=== PATIENT | male | born 1970 | race Caucasian/White ===

== ENCOUNTER 2023-01-25 16:24 | Emergency (ER) | payer MEDICAID, OTHER ==
[~2023-01-25] VITALS: Ht 180.3 cm; Wt 109.0 kg
[2023-01-25 16:31] VITALS: TEMP 98.3; O2SAT 100
[2023-01-25] MEDS ORDERED: IBUPROFEN 600MG TABLET PO ONE (17:00)
[2023-01-25 19:45] VITALS: BP 167/99; PULSE 92; RESP 18
[2023-01-25] MEDS ORDERED: IBUPROFEN 600MG TABLET PO NR (19:45)
== END 2023-01-25 20:01 | disposition home or self-care (01) ==
LOC: ER 17:10
DX: I80.02 Phlebitis and thrombophlebitis of superficial vessels of left lower extremity (principal); I10 Essential (primary) hypertension
CPT/HCPCS: 93971; 99284